=== PATIENT | female | born 1990 | race Caucasian/White ===

== ENCOUNTER 2021-12-01 16:39 | Outpatient (CLI) | payer SELFPAY ==
[~2021-12-01] VITALS: Ht 160 cm; Wt 73.6 kg
--- NOTE | 2021-12-01 16:40 | NUR ---
Pt arrived on unit ambulatory and with the use of a stick feeder she complaints of contractions every 10 minutes with some spotting since last night. Pt denies any leaking of fluid and reports normal movement. EFM and toco monitors started. Vital signs WNL. SVE by this RN /3 with some brown discharge noted on exam glove. Dr. Milian notified. See physician notification for details.
[2021-12-01] MEDS ORDERED: PRENATAL TABLET PO (16:57)
[2021-12-01 17:15] VITALS: BP 115/78; PULSE 99; TEMP 97.8
[2021-12-01 17:45] VITALS: BP 115/72; PULSE 87
[2021-12-01 17:55] VITALS: BP 115/78; PULSE 95
--- NOTE | 2021-12-01 17:55 | NUR ---
Patient off monitors and given discharge instructions. 1800: Patient ambulates off unit.
== END 2021-12-01 18:00 | disposition home or self-care (01) ==
LOC: LDRO 16:39
DX: O62.9 Abnormality of forces of labor, unspecified (principal); Z3A.39 39 weeks gestation of pregnancy

== ENCOUNTER 2021-12-03 09:30 | Inpatient (IN) | payer SELFPAY ==
[~2021-12-03] VITALS: Ht 160 cm; Wt 73.6 kg
[2021-12-03] VITALS (38 sets, daily range): BP systolic 105–155; BP diastolic 53–86; PULSE 67–138; TEMP 97.2–98.6
[~2021-12-03 09:30] MED LIST: PRENATAL TABLET PO
--- NOTE | 2021-12-03 10:00 | NUR ---
0945- Pt arrives on unit via wheelchair with complaints of contractions. Pt is [place] speaking, [employer] Interpreting Kendall used, Vane. Pt states she started contracing around 0130 this morning. Pt denies VB, LOF. Denies complications with . VSS. Assessments completed. 1005- SVE by this RN, /-2, intact. Small amount of dark brown discharge noted on exam glove. 1010- Dr Milian notified, see anesthesia record. 1015- Pt updated on POC. Pt desires epidural at this time. Office Administrator, Vane, remains online.
--- NOTE | 2021-12-03 10:15 | NUR ---
1015IV to left FA. Routine labs obtained. Pt requesting epidural and LR bolus started. Marques Ferrell CRNA on unit and aware. 1028L. Ghassan ESTES and Kasey JOSUE to bedside. Pt to edge of bed. Senior Business Intelligence Analyst utilized to translate. 1039Epidural placed and test dose by Kasey JOSUE at this time with Aline Ferrell CRNA at bedside. See anesthesia record. 1046Patient wedge left. EFM adjusted and tracing well. Senior Business Intelligence Analyst utilized to review plan of care and safety precautions. Pt verbalizes understanding. Consent forms explained and signed. 1100Report back to Franki Mckeon RN who resumes care of pt.
[2021-12-03 10:29] LABS: BASO % 0.3 % (0.0-2.0); EOS % 0.2 % (0.0-4.0); GRAN # 8.1 K/mm3 (1.4-6.5); HEMOGLOBIN 12.1 g/dl (12.5-16.0); LYMPH # 1.8 K/mm3 (1.2-3.4); LYMPH % 16.7 % (20.0-51.0); MEAN CELL VOLUME 76 fl (80.0-100.0); MEAN CORPUSCULAR HEMOGLOBIN 25 pg (27-31); MEAN CORPUSCULAR HGB CONC 33 g/dl (33.0-37.0); MEAN PLATELET VOLUME 11.3 fl (7.4-10.4); MONO # 0.6 K/mm3 (0.1-0.6); MONO % 5.8 % (1.7-9.3); PLATELET COUNT 340 K/mm3 (130-400); RED BLOOD COUNT 4.85 M/mm3 (4.10-5.30); REDCELL DISTRIBUTION WIDTH-CV 15.2 % (11.5-14.5)
--- NOTE | 2021-12-03 14:15 | NUR ---
1400- Dr Milian at bedside. [employer] Interpreting Kendall used, Joss. SVE , AROM with amniohook, clear fluid noted with large amount of dark brown mucous. Pt denies questions at this time.
--- NOTE | 2021-12-03 16:06 | NUR ---
1540- Pt complains of increased vaginal pressure. SVE by this RN, complete/+1. Dr Milian at nurses station, updated. 1545- MD and this RN to bedside. [employer] Interpreting Kendall used, Cynthia. Dalton removed by this RN without difficulty. Lissy, Nursery RN to bedside. Pt and room prepped for delivery, bed broken down for delivery. Pt begins pushing with UCs. MD remains at bedside. FHR tracing intermittenly, noted to be below baseline, 70-80's, O2 sat probe on and tracing maternal HR. 1606- of viable female , tended to by Nursery RN. Pitocin off. 1611- Spontaneous delivery of placenta. Pitocin restarted at 333ml/hr. Fundus massaged to firm by . Perineum intact. Pericare completed and ice pack to perinuem. Pt repositioned to high-fowlers, infant [id number].
[2021-12-04 00:30] VITALS: BP 97/66; PULSE 90; TEMP 97.4
[2021-12-04 04:00] VITALS: BP 101/62; PULSE 84; TEMP 97.7
[2021-12-04 07:35] VITALS: BP 108/67; PULSE 79; TEMP 97.4
[2021-12-04 12:15] VITALS: BP 112/75; PULSE 76; TEMP 97.9
[2021-12-04 16:40] VITALS: BP 117/76; PULSE 80; TEMP 98.4
--- NOTE | 2021-12-04 18:40 | NUR ---
1840 DISMISS INSTRUCTIONS GIVEN AND NO QUESTIONS AT THIS TIME. DISMISSED PER AMB TO HOME ACC BY AND DISPATCHER SERVICE OR WORK.
== END 2021-12-04 18:40 | disposition home or self-care (01) | DRG 807 ==
LOC: LDRO 09:30 → LDR 10:10 → OB 23:05
PROVIDERS: ADMIT Obstetrics & Gynecology
PROC: 10E0XZZ Delivery of Products of Conception, External Approach (ICD-10-PCS; principal; 2021-12-03)
PROC: 10907ZC Drainage of Amniotic Fluid, Therapeutic from Products of Conception, Via Natural or Artificial Opening (ICD-10-PCS; 2021-12-03)
DX: O48.0 Post-term pregnancy (principal); Z37.0 Single live birth; Z3A.40 40 weeks gestation of pregnancy; Z23 Encounter for immunization
CPT/HCPCS: J2590; J7120